=== PATIENT | female | born 1950 | race African-American/Black ===

== ENCOUNTER 2019-05-12 17:10 | Emergency (ER) | payer MEDICARE, MEDICAID ==
[~2019-05-12] VITALS: Ht 167.6 cm; Wt 99.8 kg
[2019-05-12 17:28] VITALS: BP 150/90
== END 2019-05-12 22:30 | disposition home or self-care (01) ==
LOC: ER 17:10 → EDBD 17:10 → ER 22:30
DX: M17.12 Unilateral primary osteoarthritis, left knee (principal); M19.032 Primary osteoarthritis, left wrist; M19.031 Primary osteoarthritis, right wrist; E11.9 Type 2 diabetes mellitus without complications; E78.00 Pure hypercholesterolemia, unspecified; I10 Essential (primary) hypertension; V49.9XXA Car occupant (driver) (passenger) injured in unspecified traffic accident, initial encounter; Y93.89 Activity, other specified; Y92.89 Other specified places as the place of occurrence of the external cause; Y99.8 Other external cause status
CPT/HCPCS: 73100; 73562

== ENCOUNTER 2021-10-04 12:16 | Emergency (ER) | payer MEDICARE, MEDICAID, OTHER ==
[~2021-10-04] VITALS: Ht 157.5 cm; Wt 82.1 kg
[2021-10-04] MEDS ORDERED: IOHEXOL 350 MG/ML 100ML IJ ONE ×2 (12:48→15:31)
[2021-10-04 14:35] LABS: Albumin 2.8 g/dL (3.4-5.0); Calcium 8.9 mg/dL (8.5-10.1); Potassium 3.6 mmol/L (3.5-5.1)
[2021-10-04 14:40] LABS: BUN/Creatinine Ratio 21.8; Bilirubin, Total 0.2 mg/dL (0.2-1.0); Total Protein 8.3 g/dL (6.4-8.2)
[2021-10-04 14:46] LABS: Basophils # (auto) 0.1 10 ^3/uL (0-0.2); Hemoglobin 9.3 g/dL (12.2-16.2); Lymphocytes # (auto) 1.6 10 ^3/uL (0.4-5.4); Monocytes # (auto) 0.5 10 ^3/uL (0-1.3); White Blood Cell 4.6 10^3/uL (4.4-10.8)
[2021-10-04 14:48] LABS: Basophils % (auto) 1.5 % (0.0-2.0); Eosinophils # (auto) 0 10 ^3/uL (0-0.8); Eosinophils % (auto) 1.1 % (0.0-7.0); Mean Corpuscular Hemoglobin 23.8 pg (28.0-32.0); Mean Corpuscular Hgb Conc. 32.2 g/dL (32.0-36.0); Mean Corpuscular Volume 74.1 fL (80.0-100.0); Monocytes % (auto) 10.4 % (0.0-12.0); Neutrophils # (auto) 2.3 10 ^3/uL (1.6-8.6); Nucleated Red Blood Cells % 0.1 %; Red Blood Cells 3.91 10^6/uL (4.0-5.20)
[2021-10-04 15:08] LABS: Red Cell Distribution Width 20.6 % (11.8-14.3)
[2021-10-04 16:09] VITALS: BP 168/51
== END 2021-10-04 16:35 | disposition left against medical advice (07) ==
LOC: EDBD 12:16 → ER 12:16
DX: M54.2 Cervicalgia (principal); R77.8 Other specified abnormalities of plasma proteins; I10 Essential (primary) hypertension; E11.9 Type 2 diabetes mellitus without complications; E78.5 Hyperlipidemia, unspecified; V49.9XXA Car occupant (driver) (passenger) injured in unspecified traffic accident, initial encounter; Y93.89 Activity, other specified; Y92.410 Unspecified street and highway as the place of occurrence of the external cause; Y99.8 Other external cause status
CPT/HCPCS: 36415; 71045; 80053; 83735; 83880; 84484; 85025; 93005; 99285; Q9967

== ENCOUNTER → 2022-05-03 | Emergency (ER) | payer MEDICARE, MEDICAID ==
[~2022-05-03] VITALS: Ht 157.5 cm; Wt 100.0 kg
[~2022-05-03] MED LIST: LABETALOL HCL 5 MG/ML 4ML SYRINGE IV ONE
[2022-05-03 17:08] LABS: Basophils # (auto) 0 10 ^3/uL (0-0.2); Basophils % (auto) 0.8 % (0.0-2.0); Eosinophils # (auto) 0.1 10 ^3/uL (0-0.8); Hemoglobin 10.2 g/dL (12.2-16.2); Monocytes # (auto) 0.4 10 ^3/uL (0-1.3); White Blood Cell 4.3 10^3/uL (4.4-10.8)
[2022-05-03 17:10] LABS: Eosinophils % (auto) 2.6 % (0.0-7.0); Hematocrit 32.1 % (36.0-46.0); Lymphocytes # (auto) 1.5 10 ^3/uL (0.4-5.4); Lymphocytes % (auto) 33.8 % (10.0-50.0); Mean Corpuscular Hemoglobin 22.9 pg (28.0-32.0); Mean Corpuscular Hgb Conc. 31.8 g/dL (32.0-36.0); Mean Corpuscular Volume 71.9 fL (80.0-100.0); Monocytes % (auto) 9.6 % (0.0-12.0); Neutrophils # (auto) 2.3 10 ^3/uL (1.6-8.6); Neutrophils % (auto) 53.2 % (37.0-80.0); Red Blood Cells 4.46 10^6/uL (4.0-5.20); Red Cell Distribution Width 19.6 % (11.8-14.3)
[2022-05-03 17:26] LABS: INR 1.07 (0.9-1.15); Partial Thromboplastin Time 27.6 sec (24.6-33.4)
[2022-05-03 17:32] LABS: Albumin 2.8 g/dL (3.4-5.0); BUN/Creatinine Ratio 18.2; Calcium 8.8 mg/dL (8.5-10.1); Magnesium 1.8 mg/dL (1.6-2.6)
[2022-05-03 17:34] LABS: Bilirubin, Total 0.2 mg/dL (0.2-1.0); Total Protein 7.9 g/dL (6.4-8.2)
[2022-05-03 18:00] VITALS: BP 189/73
== END | disposition home or self-care (01) ==
LOC: ER 16:10
DX: I16.0 Hypertensive urgency (principal); I61.9 Nontraumatic intracerebral hemorrhage, unspecified; E11.9 Type 2 diabetes mellitus without complications; E78.5 Hyperlipidemia, unspecified
CPT/HCPCS: 36415; 70450; 80053; 83605; 83735; 84484; 85025; 85610; 85730; 93005; 96365; 96375; 99285; J3490

== ENCOUNTER 2023-11-13 10:46 | Emergency (ER) | payer MEDICARE, MEDICAID ==
[~2023-11-13] VITALS: Ht 157.5 cm; Wt 96.8 kg
[2023-11-13] MEDS: TETRACAINE HCL 0.5% OPTH(EYE) SOLN 4ML LEFTEYE ONE (14:01)
[2023-11-13] MEDS: FLUORESCEIN SOD OPTH TEST STRIP LEFTEYE ONE (14:01)
[2023-11-13] MEDS ORDERED: ERY05OO OP (14:08)
[2023-11-13 14:30] VITALS: BP 146/76; PULSE 111; RESP 16; TEMP 98.4; O2SAT 94
== END 2023-11-13 14:32 | disposition home or self-care (01) ==
LOC: ER 10:46
DX: H10.9 Unspecified conjunctivitis (principal); I10 Essential (primary) hypertension; E11.9 Type 2 diabetes mellitus without complications; E78.5 Hyperlipidemia, unspecified; Z79.899 Other long term (current) drug therapy

== ENCOUNTER 2024-02-20 00:08 | Inpatient (IN) | payer MEDICARE, MEDICAID ==
[~2024-02-20] VITALS: Ht 157.5 cm; Wt 93.2 kg
[~2024-02-20 00:08] MED LIST changes: +ERY05OO OP; -LABETALOL HCL 5 MG/ML 4ML SYRINGE IV ONE
[2024-02-20 02:41] LABS: Basophils # (auto) 0 10 ^3/uL (0-0.2); Basophils % (auto) 0.5 % (0.0-2.0); Eosinophils # (auto) 0.1 10 ^3/uL (0-0.8); Eosinophils % (auto) 2.5 % (0.0-7.0); Hematocrit 36.7 % (36.0-46.0); Lymphocytes # (auto) 1.7 10 ^3/uL (0.4-5.4); Lymphocytes % (auto) 35.4 % (10.0-50.0); Mean Corpuscular Hemoglobin 24.2 pg (28.0-32.0); Mean Corpuscular Hgb Conc. 32.7 g/dL (32.0-36.0); Mean Corpuscular Volume 73.9 fL (80.0-100.0); Monocytes # (auto) 0.4 10 ^3/uL (0-1.3); Monocytes % (auto) 8.4 % (0.0-12.0); Neutrophils # (auto) 2.6 10 ^3/uL (1.6-8.6); Neutrophils % (auto) 53.2 % (37.0-80.0); Red Blood Cells 4.97 10^6/uL (4.0-5.20); Red Cell Distribution Width 20.6 % (11.8-14.3); White Blood Cell 4.8 10^3/uL (4.4-10.8)
[2024-02-20 02:50] LABS: Anion Gap 5 (5-15); BUN/Creatinine Ratio 15.5 (10.0-20.0); Blood Urea Nitrogen 13 mg/dL (9-23); Calcium 9.2 mg/dL (8.7-10.4); Carbon Dioxide 29 mmol/L (20-30); Chloride 105 mmol/L (98-107); Glucose 140 mg/dL (74-106); Potassium 3.4 mmol/L (3.5-5.1); Sodium 139 mmol/L (136-145)
[2024-02-20] MEDS: SODIUM CHLORIDE 0.9% 1,000 ML IV ONE (04:37)
[2024-02-20] MEDS: HYDROcodone-ACET 5/325MG TAB PO ONE (05:23)
[2024-02-20 08:00] VITALS: TEMP 97.8
[2024-02-20 09:36] VITALS: PULSE 113; RESP 19; O2SAT 92
[2024-02-20] MEDS ORDERED: NITROGLYCERIN 0.4 MG SL TAB SL PRN (09:45)
[2024-02-20] MEDS ORDERED: HYDROcodone-ACET 5/325MG TAB PO PRN (09:45)
[2024-02-20] MEDS ORDERED: HYDROcodone-ACET 10/325MG TAB PO PRN (09:45)
[2024-02-20] MEDS ORDERED: ONDANSETRON HCL 4 MG/2 ML VIAL IV PRN (09:45)
[2024-02-20] MEDS ORDERED: MORPHINE SULFATE INJ 2 MG/ml SYRG IV PRN (09:45)
[2024-02-20] MEDS ORDERED: DOCUSATE SOD 100 MG CAP PO PRN (09:45)
[2024-02-20] MEDS ORDERED: ACETAMINOPHEN 325 MG TAB PO PRN (09:45)
[2024-02-20] MEDS ORDERED: METF-370 PO (09:47)
[2024-02-20] MEDS ORDERED: ATOR-47 PO (09:47)
[2024-02-20] MEDS ORDERED: ASPI-325 PO (09:47)
[2024-02-20] MEDS ORDERED: DOCU-265 PO (09:47)
[2024-02-20] MEDS ORDERED: OMEP1CAP70 PO (09:47)
[2024-02-20] MEDS ORDERED: FURO20TA4 PO (09:47)
[2024-02-20] MEDS ORDERED: LOSA-535 PO (09:47)
[2024-02-20] MEDS ORDERED: AMLO1TAB23 PO (09:47)
[2024-02-20] MEDS ORDERED: HYDR-4798 PO (09:48)
[2024-02-20] MEDS ORDERED: DEXTROSE (50%) 50ML SYRG IV PRN (10:00)
[2024-02-20] MEDS: PANTOPRAZOLE 40 MG TAB PO SCH (10:40)
[2024-02-20] MEDS: DOCUSATE SOD 100 MG CAP PO SCH (10:41)
[2024-02-20] MEDS: ASPirin-EC 81 mg tab PO SCH (10:41)
[2024-02-20] MEDS: amLODIPine BESYLATE 5 MG TAB PO SCH (10:41)
[2024-02-20] MEDS: FUROSEMIDE 20 MG TAB PO SCH (10:42)
[2024-02-20] MEDS: ACCU-CHEK COMFORT CURVE STRIP VI SCH (11:30)
[2024-02-20] MEDS: InsuLIN REG 1unit/0.01ml Soln (100units/ml) SC SCH ×2 (11:30→22:00)
[2024-02-20] MEDS: SODIUM CHLOR 0.9% PF (SALINE LOCK) 10ML VIAL/SYR IV SCH (14:02)
[2024-02-20] MEDS ORDERED: hydrALAZINE HCL 20 MG/ML VL IV PRN (17:30)
[2024-02-20] MEDS: NIFEdipine ER 30 MG TAB PO ONE (17:40)
[2024-02-20 19:20] LABS: Urine Bacteria FEW /hpf (None Seen); Urine Blood Negative /uL (Negative); Urine Clarity Clear (Clear); Urine Color Colorless (Yellow); Urine Protein, UAD Negative (Negative); Urine Specific Gravity 1.004 (1.001-1.035); Urine Urobilinogen Normal (Negative); Urine WBC 12 /hpf (0 - 5)
[2024-02-20] MEDS: POTASSIUM CHL 20 Meq TABLET PO ONE (19:21)
[2024-02-20 19:30] VITALS: BP 149/62; PULSE 106; RESP 17; O2SAT 100
[2024-02-20 19:31] LABS: Amphetamine Screen, Urine Neg (NEGATIVE); Barbiturate Scree,Urine Neg (NEGATIVE); Benzodiazephine Screen, Urine Neg (NEGATIVE); Cannabinoid Screen, Urine Neg (NEGATIVE); Cocaine Screen, Urine Neg (NEGATIVE); Opiate Scree,Urine Neg (NEGATIVE); Phencyclidine Screen, Urine Neg (NEGATIVE)
[2024-02-20 19:40] LABS: Magnesium 1.7 mg/dL (1.6-2.6)
[2024-02-20 20:00] VITALS: PULSE 112
[2024-02-20] MEDS: ATORVASTATIN 20 MG TAB PO SCH (22:00)
[2024-02-21] MEDS ORDERED: NIFEdipine ER 30 MG TAB PO SCH (10:00)
== END 2024-02-21 | disposition left against medical advice (07) | DRG 47 ==
LOC: ER 00:08 → TELE 09:38 → TELE-WESTW 23:35 → TELE 23:45 → UNDODEPER 02-21 04:34
PROVIDERS: ADMIT Nurse Practitioner Family; ATTEND Nurse Practitioner Family
DX: G45.9 Transient cerebral ischemic attack, unspecified (principal); I21.A1 Myocardial infarction type 2; I16.0 Hypertensive urgency; E11.9 Type 2 diabetes mellitus without complications; E66.9 Obesity, unspecified; E78.5 Hyperlipidemia, unspecified; E87.6 Hypokalemia; I10 Essential (primary) hypertension; J45.909 Unspecified asthma, uncomplicated; Z86.73 Personal history of transient ischemic attack (TIA), and cerebral infarction without residual deficits; Z79.82 Long term (current) use of aspirin; Z79.899 Other long term (current) drug therapy; Z68.37 Body mass index [BMI] 37.0-37.9, adult; H53.8 Other visual disturbances; M19.90 Unspecified osteoarthritis, unspecified site
CPT/HCPCS: 36415; 70450; 80048; 80061; 80307; 81001; 82962; 83036; 83735; 84443; 84484; 85025; G0378; J1815